=== PATIENT | female | born 1960 | race Two or more races ===

== ENCOUNTER 2016-08-11 09:36 | Day surgery (SDC) | payer OTHER ==
[2016-08-11] MEDS ORDERED: LIDOCAINE 1% 2 ML VIAL ID PRN (09:42)
[2016-08-11] MEDS ORDERED: SODIUM CHLORIDE 0.9% 1,000 ML IV SCH ×3 (09:42→12:50)
[2016-08-11] MEDS ORDERED: CEFAZOLIN SODIUM 2 GRAM DUPLEX 2 G in Premix (D5W) 50 ml 1 EACH IV PRN (09:42)
[2016-08-11] MEDS ORDERED: IV START KIT ONE (09:43)
[2016-08-11] MEDS ORDERED: BUPIVACAINE 0.5% W/EPI SDV 30 ML VIAL ONE ×2 (10:03→10:16)
[2016-08-11] MEDS ORDERED: LIDOCAINE 1% (PRES FREE) 30 ML VIAL ONE ×2 (10:03→10:16)
[2016-08-11] MEDS ORDERED: PROPOFOL 20 ML IV ONE (10:10)
[2016-08-11] MEDS ORDERED: LIDOCAINE 2% (PRES FREE) 5 ML VIAL ONE (10:10)
[2016-08-11] MEDS ORDERED: MIDAZOLAM HCL 1 MG/ML 2ML VIAL ONE (10:11)
[2016-08-11] MEDS ORDERED: FENTANYL 100 MCG/2 ML VIAL ONE ×3 (10:11→12:29)
[2016-08-11] MEDS ORDERED: CEFAZOLIN SODIUM 1,000 MG VIAL ONE ×2 (10:47)
[2016-08-11] MEDS ORDERED: EPHEDRINE SULFATE UD SYR 25 MG 25 MG/5 ML SYRINGE IV ONE (11:08)
[2016-08-11] MEDS ORDERED: ONDANSETRON 4 MG/2ML 2 ML VIAL IV PRN ×2 (11:23→12:50)
[2016-08-11] MEDS ORDERED: ATROPINE SULFATE 0.4 MG/1 ML VIAL IV PRN (11:23)
[2016-08-11] MEDS ORDERED: HYDROMORPHONE HCL 1 MG/ML SYRINGE IV PRN ×2 (11:23→12:50)
[2016-08-11] MEDS ORDERED: FENTANYL 100 MCG/2 ML VIAL IV PRN (11:23)
[2016-08-11] MEDS ORDERED: HYDRALAZINE HCL 20 MG/1 ML VIAL IV PRN (11:23)
[2016-08-11] MEDS ORDERED: PROMETHAZINE HCL 25 MG/ML VIAL IM PRN (11:23)
[2016-08-11] MEDS ORDERED: MEPERIDINE 25 MG/ML SYRINGE IV PRN (11:23)
[2016-08-11] MEDS ORDERED: LABETALOL HCL 5 MG/ML 20ML VIAL IV PRN (11:23)
[2016-08-11] MEDS ORDERED: NALOXONE HCL 0.4 MG/ML VIAL IV PRN (11:23)
--- NOTE | 2016-08-11 12:23 | PCMBPN ---
Brief Post Op Note: Date of Procedure: 08/11/16 Preoperative Diagnosis: 1. Umbilical hernia Postoperative Diagnosis: 1. Same Procedure: Umbilical hernia repair with mesh Surgeon: Floridalma Rubi MD Assist:Thais Anesthesia: GETA Findings: see dictation Condition: stable Complications: none IV Fluids: see anesthesia report Urine Output: not recorded Estimated Blood Loss: 5 mLs Tourniquet Time: N/A Specimens: N/A Implants: 4.3 cm umbilical hernia mesh Drains: [N/A]
[2016-08-11] MEDS ORDERED: OXYCODONE/ACETAMINOPHEN 5/325 MG TABLET PO PRN (12:50)
[2016-08-11] MEDS ORDERED: HYDROMORPHONE HCL 0.5 MG/0.5 ML SYRINGE IV PRN (12:59)
[2016-08-11] MEDS ORDERED: OXYCODONE/ACETAMINOPHEN 5/325 MG TABLET ONE (13:50)
--- NOTE | 2016-08-11 17:32 | OP ---
ROSALIO CAMPOS [id number] : 1960 DATE OF SERVICE: August 11, 2016 PREOPERATIVE DIAGNOSIS: Umbilical hernia, incarcerated. POSTOPERATIVE DIAGNOSIS: Umbilical hernia, incarcerated. PROCEDURE PERFORMED: UMBILICAL HERNIA REPAIR WITH MESH. SURGEON: Floridalma Rubi M.D. SUPERVISOR SOLDERING: Thais ANESTHESIA: General. FINDINGS: Incarcerated umbilical hernia about a 1 cm defect, only fat within the hernia. TECHNIQUE: The patient was brought back to the operating room and placed under general anesthesia. The abdomen was prepped and draped in sterile surgical fashion. Local anesthetic was placed around the umbilicus in the dermis and subcutaneous tissue. A 15 blade scalpel was then used to make a less than 4 cm transverse incision. Electrocautery was used for hemostasis and to cut down through the subcutaneous tissue to the level of the fascia. A finger was then used for blunt dissection and to dissect around the hernia sac on all sides. Then electrocautery was used to remove the skin from the hernia sac and remove the umbilicus off of the fascia. Once the hernia sac was freed up circumferentially from the soft tissues, electrocautery was used to free up the hernia sac circumferentially from the fascia. Once this was freed up, it was realized that there was only fat within the hernia sac itself and there was a large amount of fat and only a small neck to this hernia defect. We decided just to remove the fatty tissue at the neck as this was the easiest and least problematic way of dealing with the hernia. I took electrocautery and removed the end of the hernia contents and had good hemostasis as I went. I then reduced the rest of the hernia back in the defect and used a finger to feel the fascia. There were no other defects. There were no adhesions to the abdominal wall. I then took a 4.3 cm round umbilical hernia mesh and placed it into the defect underneath the fascia and tacked it circumferentially with #2-0 Prolene sutures. Once it was sutured in place and palpated, no major defects noted, I irrigated the area, closed the tissue over the top of the mesh with #2-0 Vicryl, placed the umbilicus superior to where the mesh was placed with #2-0 Vicryl and then closed the deep dermis with #3-0 Vicryl and closed the skin with #4-0 Monocryl. The patient was awakened and returned to recovery room in stable condition. All needle, instrument and sponge counts were correct at the end of the case.
== END 2016-08-11 14:55 | disposition home or self-care (01) ==
LOC: SDC 09:36
PROVIDERS: ATTEND Surgery
PROC: 0WUF0JZ Supplement Abdominal Wall with Synthetic Substitute, Open Approach (ICD-10-PCS; principal; 2016-08-11)
DX: K42.0 Umbilical hernia with obstruction, without gangrene (principal); K44.9 Diaphragmatic hernia without obstruction or gangrene; E11.9 Type 2 diabetes mellitus without complications; K21.9 Gastro-esophageal reflux disease without esophagitis; I10 Essential (primary) hypertension; J45.909 Unspecified asthma, uncomplicated; Z79.84 Long term (current) use of oral hypoglycemic drugs; Z79.4 Long term (current) use of insulin; E66.9 Obesity, unspecified; Z68.37 Body mass index [BMI] 37.0-37.9, adult
CPT/HCPCS: 49587; J0690 ×2; J1170; J3010 ×3; A9270; J2250; J2001; J7030